=== PATIENT | female | born 1955 | race Caucasian/White ===

== ENCOUNTER → 2016-09-16 | Outpatient (CLI) | payer OTHER ==
[~2016-09-16] MED LIST: IOPAMIDOL (ISOVUE-300) 100 ML BTL ONE
== END ==
LOC: FIMAGING 11:02
PROVIDERS: ATTEND Internal Medicine Endocrinology, Diabetes & Metabolism
DX: E27.8 Other specified disorders of adrenal gland (principal); R91.8 Other nonspecific abnormal finding of lung field; D73.89 Other diseases of spleen; N28.89 Other specified disorders of kidney and ureter; K57.30 Diverticulosis of large intestine without perforation or abscess without bleeding; Z90.89 Acquired absence of other organs
CPT/HCPCS: Q9967

== ENCOUNTER → 2016-09-30 | Outpatient (CLI) | payer OTHER ==
[~2016-09-30] MED LIST changes: +IOPAMIDOL (ISOVUE 370) 100 ML BTL IV ONE; -IOPAMIDOL (ISOVUE-300) 100 ML BTL ONE
== END ==
LOC: CIMAGING 09:16
PROVIDERS: ATTEND Internal Medicine Cardiovascular Disease
DX: R91.8 Other nonspecific abnormal finding of lung field (principal); I71.2 Thoracic aortic aneurysm, without rupture; I10 Essential (primary) hypertension; E78.5 Hyperlipidemia, unspecified
CPT/HCPCS: 71260-PO; Q9967

== ENCOUNTER 2016-12-20 18:24 | Emergency (ER) | payer OTHER ==
[2016-12-20 18:34] VITALS: TEMP 97.7
--- NOTE | 2016-12-20 18:48 | CPEKG ---
Heart Rate: 79 RR Interval: 759 P-R Interval: 176 QRSD Interval: 80 QT Interval: 380 QTC Interval: 436 P [place]: 60 QRS [place]: 33 T Wave [place]: 42 EKG Severity - OTHERWISE NORMAL ECG - EKG Impression: SINUS RHYTHM EKG Impression: VENTRICULAR PREMATURE COMPLEX Electronically Signed By: Jeannie Galarza 22-Dec-2016 14:58:58
--- NOTE | 2016-12-20 18:48 | CPEKG ---
Heart Rate: 79 RR Interval: 759 P-R Interval: 176 QRSD Interval: 80 QT Interval: 380 QTC Interval: 436 P [place]: 60 QRS [place]: 33 T Wave [place]: 42 EKG Severity - OTHERWISE NORMAL ECG - EKG Impression: SINUS RHYTHM EKG Impression: VENTRICULAR PREMATURE COMPLEX Electronically Signed By: Jeannie Galarza 22-Dec-2016 14:58:58
--- NOTE | 2016-12-20 18:49 | EDPHY ---
HPI/HX/ROS/PE/MDM Narrative: CHIEF COMPLAINT: Chest pain HPI: The patient is a 61 y/o female arriving with her complaining of intermittent progressive chest pain onset 03:00 this morning, about 16 hours ago. She has a history of diabetes, hypertension, and aortic aneurysm. She woke up early this morning with "funny pains in my chest" that initially felt like gas or indigestion. They did not improve with Tums. These events last about 30 seconds to one minute and feel like a "muscle spasm" and a "clenching feeling." This evening she had a much more severe episode when she answered the door for [id number] and decided to come into the ED. She cannot identify obvious precipitating factors that bring on these spasms. She denies palpitations, dyspnea, or recent illness. She has an associated decrease in appetite today. She had similar symptoms several years ago that was attributed to low potassium ; she was on potassium repletion for a short time. She notes she flew back from [place] on Monday night, 2 days ago. Her diabetes has not been well-controlled recently and she reports her last A1C was 8.3. REVIEW OF SYSTEMS: Aside from elements discussed in the HPI, a comprehensive 10-point review of systems was reviewed and is negative. PMH: Hypertension, diabetes, mild ectatic sinus of Valsalva, adrenal tumor Family Medical History: cardiac disease, father of aortic aneurysm age 39 SOCIAL HISTORY: at bedside. Mold Yarn Supervisor: Dr. Ramsey; PCP: Dr. Toney Prior medical records reviewed including ED visit 12/26/13 for leg pain and CTs from 09/16/16 and 09/30/16. PHYSICAL EXAM: General:Patient is alert, in no acute distress. ENT:Eyes are normal to inspection. ENT inspection normal. Neck: Normal inspection. Full range of motion. Respiratory:No respiratory distress. Breath sounds normal bilaterally. Cardiovascular: Regular rate and rhythm. 1/6 systolic murmur heard best at right upper sternal border. Strong peripheral pulses. Normal cap refill. Abdomen:The abdomen is nontender to palpation. There are no peritoneal signs. There are normal bowel sounds. Back: Normal to inspection. No tenderness to palpation. Skin: Normal color. No rash. Warm and dry. Extremities: Normal appearance. Full range of motion. Neuro: Oriented x3. Normal motor function. Normal sensory function. ED Course: This is a 61 y/o female with several cardiac risk factors including diabetes, hypertension, and aortic aneurysm who presents with a 16-hour history of progressively worsening "chest spasms." Her exam is unremarkable apart from a mild systolic murmur. Plan for IV, labs, EKG, and chest x-ray to rule out cardiac etiology of her symptoms. The 12 lead EKG was interpreted by myself. Sinus mechanism. Occasional PVC. See hard copy and/or "tracemaster" electronic copy for interpretation. Reassessed patient and discussed work up. Normal chest x-ray, labs, and EKG. She developed the "spasm" during my reassessment and had a normal II lead on the monitor during this time. This makes me less suspicious her symptoms are related to palpitations or other arrhythmia. 15mg IV Toradol administered. Reassessed patient. She continues to have pain. Plan for chest CTA. CTA is negative. Reassessed patient and discussed findings. I offered her admission for further investigation of her symptoms, but she declined and would prefer to follow up as an outpatient. I advised her to take a full-strength aspirin tonight and to call her marine pipefitter helper for a follow-up appointment tomorrow morning. Strict return precautions discussed. She is comfortable with this plan. She understands the etiology of her symptoms is unknown. - Data Points Imaging Results: Imaging Impressions Chest X-Ray 12/20/16 18:40 Impression: Normal. Chest/Thorax CTA 12/20/16 20:39 Impression: 1. No pulmonary emboli. 2. Scattered small pulmonary nodules, unchanged from September 30, 2016. 3. Negative for aortic aneurysm and dissection. 4. Small hiatal hernia. I discussed results with Dr. Chin Moya at 2214 hours. Imaging: Discussed imaging studies w/ operational risk analyst Radiologist, I viewed and interpreted images myself Laboratory Results: Laboratory Results 12/20/16 18:50 12/20/16 18:50 12/20/16 12/20/16 12/20/16 18:50 18:50 18:50 WBC 9.66 10^3/uL H 10^3/uL (3.80-9.50) RBC 4.86 10^6/uL 10^6/uL (4.18-5.33) Hgb 14.2 g/dL g/dL (12.6-16.3) Hct 41.1 % % (38.0-47.0) MCV 84.6 fL fL (81.5-99.8) MCH 29.2 pg pg (27.9-34.1) MCHC 34.5 g/dL g/dL (32.4-36.7) RDW 12.6 % % (11.5-15.2) Plt Count 284 10^3/uL 10^3/uL (150-400) MPV 10.2 fL fL (8.7-11.7) Neut % (Auto) 61.7 % % (39.3-74.2) Lymph % (Auto) 27.7 % % (15.0-45.0) [place] % (Auto) 5.4 % % (4.5-13.0) Eos % (Auto) 4.5 % % (0.6-7.6) Baso % (Auto) 0.5 % % (0.3-1.7) Nucleat RBC Rel Count 0.0 % % (0.0-0.2) Absolute Neuts (auto) 5.96 10^3/uL 10^3/uL (1.70-6.50) Absolute Lymphs (auto) 2.68 10^3/uL 10^3/uL (1.00-3.00) Absolute Monos (auto) 0.52 10^3/uL 10^3/uL (0.30-0.80) Absolute Eos (auto) 0.43 10^3/uL H 10^3/uL (0.03-0.40) Absolute Basos (auto) 0.05 10^3/uL 10^3/uL (0.02-0.10) Absolute Nucleated RBC 0.00 10^3/uL 10^3/uL (0-0.01) Immature Gran % 0.2 % % (0.0-1.1) Immature Gran # 0.02 10^3/uL 10^3/uL (0.00-0.10) D-Dimer < 0.27 ug/mLFEU ug/mLFEU (0.00-0.50) Sodium 141 mEq/L mEq/L (134-144) Potassium 3.4 mEq/L L mEq/L (3.5-5.2) Chloride 99 mEq/L mEq/L (97-110) Carbon Dioxide 29 mEq/l mEq/l (22-31) Anion Gap 13 mEq/L mEq/L (8-16) BUN 10 mg/dL mg/dL (7-23) Creatinine 0.5 mg/dL L mg/dL (0.6-1.0) Estimated GFR > 60 Glucose 137 mg/dL H mg/dL (70-100) Calcium 10.8 mg/dL H mg/dL (8.5-10.4) Phosphorus 4.3 mg/dL mg/dL (2.5-4.5) Troponin I < 0.012 ng/mL ng/mL (0.000-0.034) Medications Given: Discontinued Medications Ketorolac Tromethamine (Toradol) 15 mg IVP EDNOW ONE Stop: 12/20/16 19:56 Last Admin: 12/20/16 20:08 Dose: Not Given Ketorolac Tromethamine (Toradol) 15 mg IVP EDNOW ONE Stop: 12/20/16 20:05 Last Admin: 12/20/16 20:05 Dose: 15 mg General Initial Vital Signs: Initial Vital Signs Temperature (C) 36.5 C 12/20/16 18:30 Heart Rate 78 12/20/16 18:30 Respiratory Rate 16 12/20/16 18:30 Blood Pressure 166/101 H 12/20/16 18:30 O2 Sat (%) 96 12/20/16 18:30 O2 Delivery Mode Room Air Allergies/Adverse Reactions: epinephrine [Epinephrine] Allergy (Verified 12/20/16 18:35) Home Medications: Medication Instructions Recorded Insulin Glargine [Lantus Insulin 10 unit SQ HS 03/19/11 Vial] Metformin HCl [Metformin HCl ER] 1,000 mg PO BID 03/19/11 Lisinopril/Hctz 20/12.5MG 1 ea PO DAILY #30 tab 12/26/13 [Zestoretic/Prinzide 20/12.5MG (*)] Rosuvastatin Calcium [Crestor 20mg 20 mg PO DAILY 12/26/13 (RX)] Departure - Departure Disposition: Home, Routine, Self-Care Clinical Impression: Chest pain Condition: Good Instructions: Chest Pain (ED) Additional Instructions: 1. Take a full strength 325mg aspirin tonight. 2. Call your marine pipefitter helper first thing tomorrow morning to arrange follow up this week. Tell the office you were seen in the ED for chest pain and need to be evaluated by your marine pipefitter helper. 3. Return to the ED for worsening pain, shortness of breath, fever, or other worsening of condition. Referrals: Ancelmo Toney MD [Primary Care Provider] - As per Instructions Delonte Ramsey MD [Medical Doctor] - As per Instructions Report Scribed for: Chin Moya Report Scribed by: Jaida Gonzalez Date of Report: 12/20/16 Time of Report: 18:39 Physician Review and Approval Statement: Portions of this note were transcribed by an ED scribe. I personally performed the history, physical exam, and medical decision making; and confirm the accuracy of the information in the transcribed note.
--- NOTE | 2016-12-20 18:49 | EDPHY ---
HPI/HX/ROS/PE/MDM Narrative: CHIEF COMPLAINT: Chest pain HPI: The patient is a 61 y/o female arriving with her complaining of intermittent progressive chest pain onset 03:00 this morning, about 16 hours ago. She has a history of diabetes, hypertension, and aortic aneurysm. She woke up early this morning with "funny pains in my chest" that initially felt like gas or indigestion. They did not improve with Tums. These events last about 30 seconds to one minute and feel like a "muscle spasm" and a "clenching feeling." This evening she had a much more severe episode when she answered the door for [id number] and decided to come into the ED. She cannot identify obvious precipitating factors that bring on these spasms. She denies palpitations, dyspnea, or recent illness. She has an associated decrease in appetite today. She had similar symptoms several years ago that was attributed to low potassium ; she was on potassium repletion for a short time. She notes she flew back from [place] on Monday night, 2 days ago. Her diabetes has not been well-controlled recently and she reports her last A1C was 8.3. REVIEW OF SYSTEMS: Aside from elements discussed in the HPI, a comprehensive 10-point review of systems was reviewed and is negative. PMH: Hypertension, diabetes, mild ectatic sinus of Valsalva, adrenal tumor Family Medical History: cardiac disease, father of aortic aneurysm age 39 SOCIAL HISTORY: at bedside. Health Promoter: Dr. Ramsey; PCP: Dr. Toney Prior medical records reviewed including ED visit 12/26/13 for leg pain and CTs from 09/16/16 and 09/30/16. PHYSICAL EXAM: General:Patient is alert, in no acute distress. ENT:Eyes are normal to inspection. ENT inspection normal. Neck: Normal inspection. Full range of motion. Respiratory:No respiratory distress. Breath sounds normal bilaterally. Cardiovascular: Regular rate and rhythm. 1/6 systolic murmur heard best at right upper sternal border. Strong peripheral pulses. Normal cap refill. Abdomen:The abdomen is nontender to palpation. There are no peritoneal signs. There are normal bowel sounds. Back: Normal to inspection. No tenderness to palpation. Skin: Normal color. No rash. Warm and dry. Extremities: Normal appearance. Full range of motion. Neuro: Oriented x3. Normal motor function. Normal sensory function. ED Course: This is a 61 y/o female with several cardiac risk factors including diabetes, hypertension, and aortic aneurysm who presents with a 16-hour history of progressively worsening "chest spasms." Her exam is unremarkable apart from a mild systolic murmur. Plan for IV, labs, EKG, and chest x-ray to rule out cardiac etiology of her symptoms. The 12 lead EKG was interpreted by myself. Sinus mechanism. Occasional PVC. See hard copy and/or "tracemaster" electronic copy for interpretation. Reassessed patient and discussed work up. Normal chest x-ray, labs, and EKG. She developed the "spasm" during my reassessment and had a normal II lead on the monitor during this time. This makes me less suspicious her symptoms are related to palpitations or other arrhythmia. 15mg IV Toradol administered. Reassessed patient. She continues to have pain. Plan for chest CTA. CTA is negative. Reassessed patient and discussed findings. I offered her admission for further investigation of her symptoms, but she declined and would prefer to follow up as an outpatient. I advised her to take a full-strength aspirin tonight and to call her charcoal burner beehive kiln for a follow-up appointment tomorrow morning. Strict return precautions discussed. She is comfortable with this plan. She understands the etiology of her symptoms is unknown. - Data Points Imaging Results: Imaging Impressions Chest X-Ray 12/20/16 18:40 Impression: Normal. Chest/Thorax CTA 12/20/16 20:39 Impression: 1. No pulmonary emboli. 2. Scattered small pulmonary nodules, unchanged from September 30, 2016. 3. Negative for aortic aneurysm and dissection. 4. Small hiatal hernia. I discussed results with Dr. Chin Moya at 2214 hours. Imaging: Discussed imaging studies w/ call center manager Radiologist, I viewed and interpreted images myself Laboratory Results: Laboratory Results 12/20/16 18:50 12/20/16 18:50 12/20/16 12/20/16 12/20/16 18:50 18:50 18:50 WBC 9.66 10^3/uL H 10^3/uL (3.80-9.50) RBC 4.86 10^6/uL 10^6/uL (4.18-5.33) Hgb 14.2 g/dL g/dL (12.6-16.3) Hct 41.1 % % (38.0-47.0) MCV 84.6 fL fL (81.5-99.8) MCH 29.2 pg pg (27.9-34.1) MCHC 34.5 g/dL g/dL (32.4-36.7) RDW 12.6 % % (11.5-15.2) Plt Count 284 10^3/uL 10^3/uL (150-400) MPV 10.2 fL fL (8.7-11.7) Neut % (Auto) 61.7 % % (39.3-74.2) Lymph % (Auto) 27.7 % % (15.0-45.0) [place] % (Auto) 5.4 % % (4.5-13.0) Eos % (Auto) 4.5 % % (0.6-7.6) Baso % (Auto) 0.5 % % (0.3-1.7) Nucleat RBC Rel Count 0.0 % % (0.0-0.2) Absolute Neuts (auto) 5.96 10^3/uL 10^3/uL (1.70-6.50) Absolute Lymphs (auto) 2.68 10^3/uL 10^3/uL (1.00-3.00) Absolute Monos (auto) 0.52 10^3/uL 10^3/uL (0.30-0.80) Absolute Eos (auto) 0.43 10^3/uL H 10^3/uL (0.03-0.40) Absolute Basos (auto) 0.05 10^3/uL 10^3/uL (0.02-0.10) Absolute Nucleated RBC 0.00 10^3/uL 10^3/uL (0-0.01) Immature Gran % 0.2 % % (0.0-1.1) Immature Gran # 0.02 10^3/uL 10^3/uL (0.00-0.10) D-Dimer < 0.27 ug/mLFEU ug/mLFEU (0.00-0.50) Sodium 141 mEq/L mEq/L (134-144) Potassium 3.4 mEq/L L mEq/L (3.5-5.2) Chloride 99 mEq/L mEq/L (97-110) Carbon Dioxide 29 mEq/l mEq/l (22-31) Anion Gap 13 mEq/L mEq/L (8-16) BUN 10 mg/dL mg/dL (7-23) Creatinine 0.5 mg/dL L mg/dL (0.6-1.0) Estimated GFR > 60 Glucose 137 mg/dL H mg/dL (70-100) Calcium 10.8 mg/dL H mg/dL (8.5-10.4) Phosphorus 4.3 mg/dL mg/dL (2.5-4.5) Troponin I < 0.012 ng/mL ng/mL (0.000-0.034) Medications Given: Discontinued Medications Ketorolac Tromethamine (Toradol) 15 mg IVP EDNOW ONE Stop: 12/20/16 19:56 Last Admin: 12/20/16 20:08 Dose: Not Given Ketorolac Tromethamine (Toradol) 15 mg IVP EDNOW ONE Stop: 12/20/16 20:05 Last Admin: 12/20/16 20:05 Dose: 15 mg General Initial Vital Signs: Initial Vital Signs Temperature (C) 36.5 C 12/20/16 18:30 Heart Rate 78 12/20/16 18:30 Respiratory Rate 16 12/20/16 18:30 Blood Pressure 166/101 H 12/20/16 18:30 O2 Sat (%) 96 12/20/16 18:30 O2 Delivery Mode Room Air Allergies/Adverse Reactions: epinephrine [Epinephrine] Allergy (Verified 12/20/16 18:35) Home Medications: Medication Instructions Recorded Insulin Glargine [Lantus Insulin 10 unit SQ HS 03/19/11 Vial] Metformin HCl [Metformin HCl ER] 1,000 mg PO BID 03/19/11 Lisinopril/Hctz 20/12.5MG 1 ea PO DAILY #30 tab 12/26/13 [Zestoretic/Prinzide 20/12.5MG (*)] Rosuvastatin Calcium [Crestor 20mg 20 mg PO DAILY 12/26/13 (RX)] Departure - Departure Disposition: Home, Routine, Self-Care Clinical Impression: Chest pain Condition: Good Instructions: Chest Pain (ED) Additional Instructions: 1. Take a full strength 325mg aspirin tonight. 2. Call your charcoal burner beehive kiln first thing tomorrow morning to arrange follow up this week. Tell the office you were seen in the ED for chest pain and need to be evaluated by your charcoal burner beehive kiln. 3. Return to the ED for worsening pain, shortness of breath, fever, or other worsening of condition. Referrals: Ancelmo Toney MD [Primary Care Provider] - As per Instructions Delonte Ramsey MD [Medical Doctor] - As per Instructions Report Scribed for: Chin Moya Report Scribed by: Jaida Gonzalez Date of Report: 12/20/16 Time of Report: 18:39 Physician Review and Approval Statement: Portions of this note were transcribed by an ED scribe. I personally performed the history, physical exam, and medical decision making; and confirm the accuracy of the information in the transcribed note.
[2016-12-20 18:58] LABS: PLATELET COUNT 284 10^3/uL (150-400)
[2016-12-20] MEDS ORDERED: KETOROLAC 30 MG/1 ML SDV IVP ONE (19:55)
[2016-12-20] MEDS ORDERED: KETOROLAC 15 MG/1 ML SDV ONE (20:02)
[2016-12-20] MEDS ORDERED: KETOROLAC 15 MG/1 ML SDV IVP ONE (20:04)
[2016-12-20 22:44] VITALS: BP 131/88; PULSE 70; RESP 18; O2SAT 94
== END 2016-12-20 22:42 | disposition home or self-care (01) ==
DX: R07.9 Chest pain, unspecified (principal); I10 Essential (primary) hypertension; E11.9 Type 2 diabetes mellitus without complications; Z79.4 Long term (current) use of insulin; Z79.84 Long term (current) use of oral hypoglycemic drugs
CPT/HCPCS: 96374; J1885

== ENCOUNTER 2017-05-15 07:27 | Day surgery (SDC) | payer OTHER ==
[2017-05-15] MEDS ORDERED: DIAZEPAM 5 MG TAB PO ONE (07:31)
[2017-05-15] MEDS ORDERED: FAMOTIDINE 20 MG TAB PO ONE (07:31)
[2017-05-15] MEDS ORDERED: NS 1,000 ML IV ONE (07:31)
[2017-05-15] MEDS ORDERED: ASPIRIN EC 325 MG TAB PO ONE ×2 (07:31→07:51)
[2017-05-15] MEDS ORDERED: diphenhydrAMINE 25 MG CAP PO ONE ×2 (07:31→07:51)
[2017-05-15] MEDS ORDERED: DIAZEPAM 5 MG TAB ONE (07:51)
[2017-05-15] MEDS ORDERED: FAMOTIDINE 20 MG TAB ONE (07:51)
--- NOTE | 2017-05-15 07:55 | CPEKG ---
Heart Rate: 83 RR Interval: 723 P-R Interval: 176 QRSD Interval: 74 QT Interval: 388 QTC Interval: 456 P [place]: 57 QRS [place]: 43 T Wave [place]: 53 EKG Severity - BORDERLINE ECG - EKG Impression: SINUS RHYTHM EKG Impression: COMPARED TO EKG 12/20/2017, NO EVIDENCE OF PVC, NSSTWAVE ABNORMALITY NOW PRESENT Electronically Signed By: Siva Gordon 17-May-2017 10:09:07
[2017-05-15] MEDS ORDERED: MIDAZOLAM 2 MG/2 ML VIAL ONE ×3 (08:07→09:32)
[2017-05-15] MEDS ORDERED: LIDOCAINE 1% 300 MG/30 ML SDV ONE (08:07)
[2017-05-15] MEDS ORDERED: fentaNYL 100 MCG/2 ML INJ ONE ×2 (08:07→09:32)
[2017-05-15] MEDS ORDERED: IOPAMIDOL (ISOVUE-370) 150 ML BTL IV ONE (08:07)
[2017-05-15 08:09] LABS: PLATELET COUNT 265 10^3/uL (150-400)
[2017-05-15 08:18] LABS: INR 0.98 (0.83-1.16); PROTIME(PATIENT) 13.2 SEC (12.0-15.0)
--- NOTE | 2017-05-15 08:45 | PDPROPOC ---
Sedation Plan of Care Sedation Plan of Care: vital signs stable, mental status noted, patient educated of risks, benefits, alternatives, patient can tolerate sedation ASA Classification: ASA 2 Planned drugs: fentanyl, midazolam Mallampati Score: Class 2 Mallampati Reference Image: Patient passed 3-3-2 rule?: Yes
--- NOTE | 2017-05-15 08:46 | PDHPUP ---
History & Physical Update H&P update statement: This history and physical update is based on an assessment of the patient which was completed after admission or registration (within 24 hours), but prior to the surgery/procedure. H&P update: H&P reviewed & patient examined, no change in patient's condition since H&P completed
--- NOTE | 2017-05-15 08:54 | PDGENHP ---
History & Physical Chief Complaint: chest pain History of Present Illness: Pt presented with chest pain. She ruled out for myocardial infarction by biomarkers. Follow up stress testing was abnormal. Pertinent Past, Social, Family History: No tobacco Relevant Physical Exam: RRR, S1, S2. CTA. No edema Cardiorespiratory Assessment: Pt presents with symptoms of chest pain and an abnormal stress test. Will arrange for cardiac catheterization to further evaluate her condition. Pt also has a mildly dilated ascending aorta with moderate AI.
[2017-05-15] MEDS ORDERED: ONDANSETRON 4 MG/2 ML VIAL ONE (08:55)
[2017-05-15] MEDS ORDERED: ATROPINE SULFATE 1 MG/10 ML SYR IVP PRN (09:43)
[2017-05-15] MEDS ORDERED: NITROGLYCERIN 0.4 MG BTL SL PRN (09:43)
[2017-05-15] MEDS ORDERED: ONDANSETRON 4 MG/2 ML VIAL IVP PRN (09:43)
--- NOTE | 2017-05-15 10:37 | CPIP ---
[f rep st] INVASIVE CARDIAC PROCEDURE DATE OF PROCEDURE: 05/15/2017 PROCEDURE: 1. Coronary angiography. 2. Left ventriculography. 3. Ascending aortography. INDICATION: 1. Chest pain concerning for an anginal equivalent. 2. Abnormal nuclear stress test with mid anterior ischemia that would be considered low risk. 3. Aortic insufficiency. ACCESS: The patient was prepped and draped in sterile fashion. 1% lidocaine was used to anesthetize the right inguinal region. A 6-[place]ian introducer sheath was placed selectively into the right commo n femoral artery via modified Seldinger technique. CORONARY ANGIOGRAPHY: A 6-[place]ian JL4 was advanced to the left main coronary artery and images obtain ed. The left main coronary artery trifurcated into an LAD, ramus, and circumflex coronary arteries. The left main coronary artery appeared normal. The left anterior descending coronary artery gave ri se to 1 prominent branching diagonal artery. The left anterior descending coronary artery had a sing le discrete 15% stenosis in the mid vessel. The diagonal artery is free of any significant disease. The ramus coronary artery is a small vessel approximately 2 mm in diameter. The ramus coronary lacey ry appeared normal. The circumflex coronary artery was a large vessel. The circumflex coronary lacey ry is nondominant. Circumflex coronary artery gave rise to 2 OM branches. The circumflex coronary a rtery and its complement of OM branches appeared normal. A 6-[place] JR4 was advanced to the right co ronary artery and images obtained. The right coronary artery is dominant. The right coronary artery appeared normal. LEFT VENTRICULOGRAPHY: A 6-[place]ian pigtail catheter was advanced in the left ventricle and images obt ained. The left ventricle is normal size, had normal systolic function. Estimated ejection fraction of 65%. Ascending aortography a 6-[place]ian pigtail catheter was advanced into the ascending aorta and position verified by angiography. Images were obtained via power injection through the [employer]. The ascending aorta appeared to be mildly dilated. There was 1 to 2+ aortic insufficiency presen t. COMPLICATIONS: None. CONCLUSIONS: 1. Mild coronary artery disease without flow limitation. 2. Normal left ventricular size and systolic function. 3. Mildly dilated ascending aorta with 1 to 2+ aortic insufficiency. /[id number]/[id number]
[2017-05-15] MEDS ORDERED: ROSUVASTATIN CALCIUM 10 MG TAB PO SCH (21:00)
[2017-05-15] MEDS ORDERED: INSULIN GLARGINE HUM REC ANLOG 35 UNIT SQ SCH (21:00)
[2017-05-16] MEDS ORDERED: MULTIVITAMINS 1 EACH TAB PO SCH (09:00)
[2017-05-16] MEDS ORDERED: Herbals/Supplements -Info Only PO SCH (09:00)
[2017-05-16] MEDS ORDERED: ASPIRIN 81 MG CHEWABLE TAB PO SCH (09:00)
[2017-05-16] MEDS ORDERED: LISINOPRIL/HCTZ 20/12.5MG 1 EA TAB PO SCH (09:00)
[2017-05-17] MEDS ORDERED: metFORMIN SR 500 MG TAB PO SCH (21:00)
== END 2017-05-15 13:00 | disposition home or self-care (01) ==
LOC: FCATH 07:27
PROVIDERS: ATTEND Internal Medicine Cardiovascular Disease
PROC: B2151ZZ Fluoroscopy of Left Heart using Low Osmolar Contrast (ICD-10-PCS; principal; 2017-05-15)
PROC: B2111ZZ Fluoroscopy of Multiple Coronary Arteries using Low Osmolar Contrast (ICD-10-PCS; principal; 2017-05-15)
DX: R07.9 Chest pain, unspecified (principal); R94.39 Abnormal result of other cardiovascular function study; I25.10 Atherosclerotic heart disease of native coronary artery without angina pectoris; I35.1 Nonrheumatic aortic (valve) insufficiency
CPT/HCPCS: C1760; J1644; J2250; J2405; J3010; Q9967